=== PATIENT | male | born 1945 | race Caucasian/White ===

== ENCOUNTER → 2017-08-28 | Outpatient (CLI) | payer OTHER | END | disposition home or self-care (01) | LOC: PETCFH 13:11 | PROVIDERS: ATTEND Internal Medicine Pulmonary Disease | DX: R91.1 Solitary pulmonary nodule (principal) | CPT/HCPCS: 78815; A9552 ==

== ENCOUNTER 2017-12-09 21:15 | Inpatient (IN) | payer OTHER ==
[~2017-12-09] VITALS: Ht 172.7 cm; Wt 83.5 kg
[2017-12-09] MEDS ORDERED: ALBUTEROL/IPRATROPIUM 2.5MG/0.5MG, 3 ML ONE (21:38)
[2017-12-09 21:47] LABS: BASOPHILS # (AUTO) 0.05 x10^3/uL (0-0.1); BASOPHILS % (AUTO) 1 % (0-1); EOSINOPHILS # (AUTO) 0.19 x10^3/uL (0-0.4); EOSINOPHILS % (AUTO) 2 % (1-7); LYMPHOCYTES # (AUTO) 0.97 x10^3/uL (1-3.4); LYMPHOCYTES % (AUTO) 11 % (22-44); MD NO; MEAN CORPUSCULAR HEMOGLOBIN 29.8 pg (27.5-34.5); MEAN CORPUSCULAR HGB CONC 33.3 g/dL (33.2-36.2); MEAN CORPUSCULAR VOLUME 89.4 fL (81-97); MEAN PLATELET VOLUME 5.9 fL (7.4-10.4); MONOCYTES # (AUTO) 0.74 x10^3/uL (0.2-0.8); MONOCYTES % (AUTO) 9 % (2-9); NEUTROPHILS # (AUTO) 6.63 x10^3/uL (1.8-6.8); NEUTROPHILS % (AUTO) 77 % (42-75); PLATELET COUNT 560 x10^3/uL (130-400); RED BLOOD COUNT 3.79 x10^6/uL (4.38-5.82); RED CELL DISTRIBUTION WIDTH 16.4 % (9.4-14.8)
[2017-12-09 21:56] LABS: INTERNATIONAL NORMALIZED RATIO 0.95 (0.93-1.1); PROTHROMBIN TIME 9.9 Seconds (9.6-11.5)
[2017-12-09 21:59] LABS: ALANINE AMINOTRANSFERASE 22 U/L (12-78); ALBUMIN 2.8 g/dL (3.4-5.0); ANION GAP 9 mmol/L (5-15); CHLORIDE 81 mmol/L (98-107); CREATININE 0.78 mg/dL (0.7-1.3)
[2017-12-09] MEDS ORDERED: ALBUTEROL/IPRATROPIUM 2.5MG/0.5MG, 3 ML NPPB ONE (22:00)
[2017-12-09 22:03] LABS: ALKALINE PHOSPHATASE 134 U/L (45-117); BILIRUBIN,TOTAL 0.6 mg/dL (0.2-1.0); TOTAL PROTEIN 6.6 g/dL (6.4-8.2)
[2017-12-09] MEDS ORDERED: AMLO10TA2 PO (22:25)
[2017-12-09] MEDS ORDERED: FERR140T2 PO (22:25)
[2017-12-09] MEDS ORDERED: TAMS0.4C2 PO (22:25)
[2017-12-09] MEDS ORDERED: BUDE0.5A INH (22:25)
[2017-12-09] MEDS ORDERED: METO25TA35 PO (22:25)
[2017-12-09] MEDS ORDERED: LOSA1TAB25 PO (22:25)
[2017-12-09] MEDS ORDERED: ALBU1.25 NEB (22:25)
[2017-12-09] MEDS ORDERED: TIOT18CA INH (22:25)
[2017-12-09] MEDS ORDERED: SODIUM CHLORIDE 0.9% 1,000 ML IV SCH (23:01)
[2017-12-09] MEDS ORDERED: BUDESONIDE 0.5 MG/2 ML INHA INH SCH (23:30)
[2017-12-09] MEDS ORDERED: hydrALAzine 20 MG/ML, 1ML IVPush PRN (23:30)
[2017-12-09] MEDS ORDERED: ONDANSETRON 2MG/ML, 2ML IVPush PRN (23:30)
[2017-12-09 23:33] LABS: MICROSCOPIC AUTO
[2017-12-09 23:37] LABS: CULTURE INDICATED? YES
[2017-12-10] MEDS: ENOXAPARIN 40 MG/0.4 ML SQ SCH ×2 (00:24→23:25)
[2017-12-10] MEDS: LACTULOSE 10 GM/15 ML UDC PO SCH ×3 (00:24→21:00)
[2017-12-10 02:38] VITALS: BP 142/76
[2017-12-10 04:00] VITALS: BP 137/76
[2017-12-10 04:35] LABS: BASOPHILS # (AUTO) 0.08 x10^3/uL (0-0.1); BASOPHILS % (AUTO) 1 % (0-1); EOSINOPHILS # (AUTO) 0.23 x10^3/uL (0-0.4); EOSINOPHILS % (AUTO) 3 % (1-7); LYMPHOCYTES # (AUTO) 0.73 x10^3/uL (1-3.4); LYMPHOCYTES % (AUTO) 10 % (22-44); MD NO; MEAN CORPUSCULAR HEMOGLOBIN 30.5 pg (27.5-34.5); MEAN CORPUSCULAR HGB CONC 33.7 g/dL (33.2-36.2); MEAN CORPUSCULAR VOLUME 90.4 fL (81-97); MONOCYTES # (AUTO) 0.71 x10^3/uL (0.2-0.8); MONOCYTES % (AUTO) 10 % (2-9); NEUTROPHILS # (AUTO) 5.33 x10^3/uL (1.8-6.8); NEUTROPHILS % (AUTO) 75 % (42-75); PLATELET COUNT 464 x10^3/uL (130-400); RED CELL DISTRIBUTION WIDTH 16.4 % (9.4-14.8)
[2017-12-10 04:42] LABS: ALBUMIN 2.4 g/dL (3.4-5.0); ANION GAP 12 mmol/L (5-15); CALCIUM 7.6 mg/dL (8.5-10.1); CHLORIDE 87 mmol/L (98-107)
[2017-12-10 04:53] LABS: ALANINE AMINOTRANSFERASE 19 U/L (12-78); ALKALINE PHOSPHATASE 111 U/L (45-117); BILIRUBIN,TOTAL 0.6 mg/dL (0.2-1.0); CREATININE 0.62 mg/dL (0.7-1.3)
[2017-12-10 04:54] LABS: TOTAL PROTEIN 5.6 g/dL (6.4-8.2)
[2017-12-10] MEDS: IPRATROPIUM 0.5 MG/2.5 ML INHA NPPB SCH ×4 (06:48→19:03)
[2017-12-10 08:58] LABS: ANION GAP 10 mmol/L (5-15); CALCIUM 7.7 mg/dL (8.5-10.1); CHLORIDE 89 mmol/L (98-107); CREATININE 0.64 mg/dL (0.7-1.3)
[2017-12-10] MEDS: METOPROLOL TARTRATE 25 MG TABLET PO SCH (09:30)
[2017-12-10] MEDS: TAMSULOSIN 0.4 MG CAP.ER.24H PO SCH (09:30)
[2017-12-10] MEDS: POLYETHYLENE GLYCOL 17 GM PACKET PO SCH (09:30)
[2017-12-10] MEDS: PANTOPRAZOLE 40 MG IV IVPush SCH (11:17)
[2017-12-10] MEDS ORDERED: PINK LADY ENEMA 490 ML BOTTLE PR ONE (11:30)
[2017-12-10] MEDS ORDERED: SODIUM CHLORIDE 0.9% 1,000 ML IV SCH (11:30)
[2017-12-10] MEDS ORDERED: BISACODYL 10 MG SUPP PR PRN (12:00)
[2017-12-10] MEDS ORDERED: MAGNESIUM SULFATE PMX 2GM/50ML 50 ML IV ONE (12:00)
[2017-12-10] MEDS ORDERED: CEFTRIAXONE PMX 1GM/50ML 50 ML IV SCH (12:00)
[2017-12-10] MEDS ORDERED: LACTULOSE 20 GM/30 ML UDC PO PRN (12:00)
[2017-12-10] MEDS: DOCUSATE 100 MG CAPSULE PO SCH (12:44)
[2017-12-10 14:43] LABS: ANION GAP 8 mmol/L (5-15); CALCIUM 7.7 mg/dL (8.5-10.1); CHLORIDE 91 mmol/L (98-107); CREATININE 0.68 mg/dL (0.7-1.3)
[2017-12-10 15:47] LABS: OSMOLALITY,URINE 258 mOsm/kg (500-850)
[2017-12-10 15:53] LABS: SODIUM,URINE RANDOM 22 mmol/L
[2017-12-10] MEDS: THIAMINE 200 MG, MVI ADULT 10 ML, FOLIC ACID 1 MG in D5%-0.9% NACL 1,000 ML IV SCH (16:56)
[2017-12-10 20:44] LABS: ANION GAP 9 mmol/L (5-15); CALCIUM 8.1 mg/dL (8.5-10.1); CHLORIDE 91 mmol/L (98-107); CREATININE 0.97 mg/dL (0.7-1.3)
[2017-12-10] MEDS: SENNA/DOCUSATE TABLET PO SCH (21:00)
[2017-12-11 04:30] VITALS: BP 125/60
[2017-12-11 04:37] LABS: ALANINE AMINOTRANSFERASE 17 U/L (12-78); ALBUMIN 2.3 g/dL (3.4-5.0); ANION GAP 7 mmol/L (5-15); CALCIUM 7.9 mg/dL (8.5-10.1); CHLORIDE 93 mmol/L (98-107); CREATININE 0.89 mg/dL (0.7-1.3)
[2017-12-11 04:39] LABS: ALKALINE PHOSPHATASE 107 U/L (45-117); BILIRUBIN,TOTAL 0.6 mg/dL (0.2-1.0); TOTAL PROTEIN 5.6 g/dL (6.4-8.2)
[2017-12-11 04:51] LABS: BASOPHILS # (AUTO) 0.09 x10^3/uL (0-0.1); BASOPHILS % (AUTO) 1 % (0-1); EOSINOPHILS # (AUTO) 0.19 x10^3/uL (0-0.4); EOSINOPHILS % (AUTO) 2 % (1-7); LYMPHOCYTES # (AUTO) 0.67 x10^3/uL (1-3.4); LYMPHOCYTES % (AUTO) 7 % (22-44); MD NO; MEAN CORPUSCULAR HEMOGLOBIN 30.3 pg (27.5-34.5); MEAN CORPUSCULAR HGB CONC 33.3 g/dL (33.2-36.2); MEAN CORPUSCULAR VOLUME 91.1 fL (81-97); MEAN PLATELET VOLUME 6.6 fL (7.4-10.4); MONOCYTES # (AUTO) 0.86 x10^3/uL (0.2-0.8); MONOCYTES % (AUTO) 9 % (2-9); NEUTROPHILS # (AUTO) 7.59 x10^3/uL (1.8-6.8); NEUTROPHILS % (AUTO) 81 % (42-75); PLATELET COUNT 461 x10^3/uL (130-400); RED BLOOD COUNT 3.17 x10^6/uL (4.38-5.82); RED CELL DISTRIBUTION WIDTH 16.2 % (9.4-14.8)
[2017-12-11] MEDS: IPRATROPIUM 0.5 MG/2.5 ML INHA NPPB SCH ×4 (07:00→18:43)
[2017-12-11] MEDS ORDERED: SODIUM PHOSPHATE 20 MMOL in SODIUM CHLORIDE 0.9% 500 ML IV ONE (07:30)
[2017-12-11] MEDS: TAMSULOSIN 0.4 MG CAP.ER.24H PO SCH (08:53)
[2017-12-11] MEDS: METOPROLOL TARTRATE 25 MG TABLET PO SCH (08:54)
[2017-12-11] MEDS: LACTULOSE 10 GM/15 ML UDC PO SCH (08:55)
[2017-12-11] MEDS: POLYETHYLENE GLYCOL 17 GM PACKET PO SCH (08:55)
[2017-12-11] MEDS: DOCUSATE 100 MG CAPSULE PO SCH (08:56)
[2017-12-11] MEDS ORDERED: SODIUM CHLORIDE 0.9% 1,000 ML IV SCH (11:30)
[2017-12-11] MEDS: PANTOPRAZOLE 40 MG IV IVPush SCH (12:01)
[2017-12-11 13:21] VITALS: BP 127/73
[2017-12-11] MEDS ORDERED: CEFTRIAXONE 1,000 MG in SODIUM CHLORIDE 0.9% 100 ML IV SCH (13:30)
[2017-12-11] MEDS: CEFTRIAXONE 1,000 MG in SODIUM CHLORIDE 0.9% 50 ML IV SCH (13:39)
[2017-12-11] MEDS: THIAMINE 200 MG, MVI ADULT 10 ML, FOLIC ACID 1 MG in D5%-0.9% NACL 1,000 ML IV SCH (18:14)
[2017-12-11 18:32] VITALS: BP 150/82
[2017-12-11] MEDS: SENNA/DOCUSATE TABLET PO SCH (21:00)
[2017-12-11] MEDS: ENOXAPARIN 40 MG/0.4 ML SQ SCH (21:53)
[2017-12-11] MEDS: BUDESONIDE MC SCH (22:30)
[2017-12-11] MEDS ORDERED: BUDESONIDE 0.5 MG/2 ML INHA INH PRN (22:30)
[2017-12-12 01:01] VITALS: BP 147/64
[2017-12-12] MEDS: ALBUTEROL SULFATE 2.5 MG/3 ML NPPB PRN (04:19)
[2017-12-12] MEDS: BUDESONIDE MC SCH ×3 (06:30→21:56)
[2017-12-12 07:11] VITALS: BP 132/56
[2017-12-12] MEDS ORDERED: POTASSIUM CHLORIDE 20 MEQ TAB.ER.PRT PO ONE (08:00)
[2017-12-12] MEDS ORDERED: FUROSEMIDE 40 MG/4 ML IV ONE (08:00)
[2017-12-12 08:30] VITALS: BP 135/80
[2017-12-12] MEDS: POLYETHYLENE GLYCOL 17 GM PACKET PO SCH (09:00)
[2017-12-12] MEDS ORDERED: IPRATROPIUM 0.5 MG/2.5 ML INHA NPPB SCH (09:00)
[2017-12-12] MEDS: DOCUSATE 100 MG CAPSULE PO SCH (09:00)
[2017-12-12] MEDS: ALBUTEROL/IPRATROPIUM 2.5MG/0.5MG, 3 ML NPPB SCH ×4 (09:15→18:35)
[2017-12-12] MEDS ORDERED: ALBUTEROL/IPRATROPIUM 2.5MG/0.5MG, 3 ML ONE (09:18)
[2017-12-12] MEDS: TAMSULOSIN 0.4 MG CAP.ER.24H PO SCH (09:18)
[2017-12-12] MEDS: METOPROLOL TARTRATE 25 MG TABLET PO SCH (09:19)
[2017-12-12] MEDS: FLUTICASONE/VILANTEROL 100-25MCG/INH INH SCH (10:30)
[2017-12-12] MEDS: PANTOPRAZOLE 40 MG IV IVPush SCH (13:44)
[2017-12-12] MEDS: CEFTRIAXONE 1,000 MG in SODIUM CHLORIDE 0.9% 50 ML IV SCH (13:44)
[2017-12-12 14:00] VITALS: BP 140/80
[2017-12-12] MEDS: THIAMINE 200 MG, MVI ADULT 10 ML, FOLIC ACID 1 MG in D5%-0.9% NACL 1,000 ML IV SCH (18:16)
[2017-12-12 18:53] VITALS: BP 126/68
[2017-12-12] MEDS: ENOXAPARIN 40 MG/0.4 ML SQ SCH (21:53)
[2017-12-12] MEDS: SULFAMETH./TRIMETHOPRIM DS 800MG/160MG TABLET PO SCH (21:53)
[2017-12-13 00:20] VITALS: BP 147/62
[2017-12-13] MEDS: ALBUTEROL SULFATE 2.5 MG/3 ML NPPB PRN (00:45)
[2017-12-13 04:52] LABS: ALBUMIN 2.2 g/dL (3.4-5.0); ANION GAP 8 mmol/L (5-15); CHLORIDE 100 mmol/L (98-107)
[2017-12-13 04:58] LABS: % IRON SATURATION 6 % (20-55); ALANINE AMINOTRANSFERASE 16 U/L (12-78); ALKALINE PHOSPHATASE 84 U/L (45-117); BILIRUBIN,TOTAL 0.2 mg/dL (0.2-1.0); CREATININE 0.84 mg/dL (0.7-1.3); IRON LEVEL 17 mcg/dL (65-175); TOTAL IRON BINDING CAPACITY 291 mcg/dL (250-450); TOTAL PROTEIN 5.3 g/dL (6.4-8.2)
[2017-12-13 05:27] LABS: BASOPHILS # (AUTO) 0.09 x10^3/uL (0-0.1); BASOPHILS % (AUTO) 1 % (0-1); EOSINOPHILS # (AUTO) 0.23 x10^3/uL (0-0.4); EOSINOPHILS % (AUTO) 3 % (1-7); LYMPHOCYTES # (AUTO) 0.73 x10^3/uL (1-3.4); LYMPHOCYTES % (AUTO) 10 % (22-44); MD NO; MEAN CORPUSCULAR HEMOGLOBIN 31.9 pg (27.5-34.5); MEAN CORPUSCULAR HGB CONC 34.2 g/dL (33.2-36.2); MEAN CORPUSCULAR VOLUME 93.2 fL (81-97); MEAN PLATELET VOLUME 6.4 fL (7.4-10.4); MONOCYTES % (AUTO) 11 % (2-9); NEUTROPHILS # (AUTO) 5.49 x10^3/uL (1.8-6.8); NEUTROPHILS % (AUTO) 75 % (42-75); PLATELET COUNT 420 x10^3/uL (130-400); RED BLOOD COUNT 2.71 x10^6/uL (4.38-5.82); RED CELL DISTRIBUTION WIDTH 16.8 % (9.4-14.8)
[2017-12-13] MEDS: ALBUTEROL/IPRATROPIUM 2.5MG/0.5MG, 3 ML NPPB SCH ×4 (05:50→19:24)
[2017-12-13] MEDS: BUDESONIDE MC SCH (06:30)
[2017-12-13 07:19] VITALS: BP 153/72
[2017-12-13] MEDS ORDERED: D5 IV PRN (09:00)
[2017-12-13] MEDS: METOPROLOL TARTRATE 25 MG TABLET PO SCH ×2 (09:00→20:00)
[2017-12-13] MEDS ORDERED: MVI ADULT IV PRN (09:00)
[2017-12-13] MEDS: DOCUSATE 100 MG CAPSULE PO SCH (09:00)
[2017-12-13] MEDS ORDERED: NACL IV PRN (09:00)
[2017-12-13] MEDS: POLYETHYLENE GLYCOL 17 GM PACKET PO SCH (09:00)
[2017-12-13] MEDS ORDERED: THIAMINE IV PRN (09:00)
[2017-12-13] MEDS ORDERED: FOLIC ACID IV PRN (09:00)
[2017-12-13] MEDS ORDERED: BUDESONIDE 0.5 MG/2 ML INHA INH PRN (09:30)
[2017-12-13] MEDS ORDERED: MAGNESIUM SULFATE IN WATER 50 ML IV ONE (10:00)
[2017-12-13] MEDS ORDERED: POTASSIUM PHOSPHATE 22 MEQ in SODIUM CHLORIDE 0.9% 250 ML IV ONE (10:00)
[2017-12-13] MEDS: FLUTICASONE/VILANTEROL 100-25MCG/INH INH SCH (10:35)
[2017-12-13] MEDS: TAMSULOSIN 0.4 MG CAP.ER.24H PO SCH (10:38)
[2017-12-13] MEDS: SULFAMETH./TRIMETHOPRIM DS 800MG/160MG TABLET PO SCH ×2 (10:38→20:00)
[2017-12-13] MEDS: methylPREDNISolone SOD SUCC 125 MG/2 ML IVPush SCH ×2 (10:40→17:54)
[2017-12-13] MEDS: AZITHROMYCIN 500 MG TABLET PO SCH (10:40)
[2017-12-13] MEDS: PANTOPRAZOLE 40 MG IV IVPush SCH (12:42)
[2017-12-13 13:58] VITALS: BP 160/85
[2017-12-13 20:00] VITALS: BP 144/77
[2017-12-13] MEDS: BUDESONIDE 0.5 MG/2 ML INHA INH SCH (21:00)
[2017-12-13] MEDS: ENOXAPARIN 40 MG/0.4 ML SQ SCH (22:07)
[2017-12-14 01:30] VITALS: BP 147/81
[2017-12-14] MEDS: methylPREDNISolone SOD SUCC 125 MG/2 ML IVPush SCH ×3 (01:31→18:53)
[2017-12-14 05:51] LABS: ALBUMIN 2.3 g/dL (3.4-5.0); ANION GAP 6 mmol/L (5-15); CALCIUM 8.5 mg/dL (8.5-10.1); CHLORIDE 101 mmol/L (98-107)
[2017-12-14 05:56] LABS: ALANINE AMINOTRANSFERASE 18 U/L (12-78); ALKALINE PHOSPHATASE 83 U/L (45-117); BILIRUBIN,TOTAL 0.6 mg/dL (0.2-1.0); TOTAL PROTEIN 5.8 g/dL (6.4-8.2)
[2017-12-14 06:03] LABS: MEAN CORPUSCULAR HEMOGLOBIN 31.4 pg (27.5-34.5); MEAN CORPUSCULAR HGB CONC 33.8 g/dL (33.2-36.2); MEAN CORPUSCULAR VOLUME 92.8 fL (81-97); MEAN PLATELET VOLUME 6.2 fL (7.4-10.4); PLATELET COUNT 433 x10^3/uL (130-400); RED BLOOD COUNT 2.78 x10^6/uL (4.38-5.82); RED CELL DISTRIBUTION WIDTH 16.6 % (9.4-14.8)
[2017-12-14 06:35] LABS: BASOPHILS % (AUTO) 0 % (0-1); EOSINOPHILS % (AUTO) 0 % (1-7); LYMPHOCYTES % (AUTO) 2 % (22-44); MD SCAN; MONOCYTES # (AUTO) 0.08 x10^3/uL (0.2-0.8); MONOCYTES % (AUTO) 2 % (2-9); NEUTROPHILS # (AUTO) 4.43 x10^3/uL (1.8-6.8); NEUTROPHILS % (AUTO) 96 % (42-75)
[2017-12-14] MEDS: ALBUTEROL/IPRATROPIUM 2.5MG/0.5MG, 3 ML NPPB SCH ×4 (07:15→20:25)
[2017-12-14 07:31] VITALS: BP 164/87
[2017-12-14] MEDS: BUDESONIDE 0.5 MG/2 ML INHA INH SCH ×3 (09:00→20:25)
[2017-12-14] MEDS: POLYETHYLENE GLYCOL 17 GM PACKET PO SCH (09:00)
[2017-12-14] MEDS: FLUTICASONE/VILANTEROL 100-25MCG/INH INH SCH (09:12)
[2017-12-14] MEDS: TAMSULOSIN 0.4 MG CAP.ER.24H PO SCH (09:13)
[2017-12-14] MEDS: SULFAMETH./TRIMETHOPRIM DS 800MG/160MG TABLET PO SCH ×2 (09:13→21:16)
[2017-12-14] MEDS: AZITHROMYCIN 500 MG TABLET PO SCH (09:13)
[2017-12-14] MEDS: DOCUSATE 100 MG CAPSULE PO SCH (09:13)
[2017-12-14] MEDS: METOPROLOL TARTRATE 25 MG TABLET PO SCH ×2 (09:13→21:17)
[2017-12-14 13:00] VITALS: BP 125/75
[2017-12-14] MEDS: PANTOPRAZOLE 40 MG IV IVPush SCH (14:02)
[2017-12-14] MEDS ORDERED: FUROSEMIDE 40 MG/4 ML IV ONE (16:00)
[2017-12-14 19:45] VITALS: BP 151/70
[2017-12-14] MEDS: PANTOPROZOLE 40MG TABLET PO SCH (21:17)
[2017-12-14] MEDS: ACETAMINOPHEN 325 MG TABLET PO PRN (21:27)
[2017-12-14] MEDS: ENOXAPARIN 40 MG/0.4 ML SQ SCH (22:28)
[2017-12-15 01:54] VITALS: BP 151/74
[2017-12-15] MEDS: methylPREDNISolone SOD SUCC 125 MG/2 ML IVPush SCH ×3 (03:34→20:37)
[2017-12-15 06:55] VITALS: BP 114/57
[2017-12-15] MEDS: ALBUTEROL/IPRATROPIUM 2.5MG/0.5MG, 3 ML NPPB SCH ×4 (07:20→20:55)
[2017-12-15] MEDS ORDERED: PHARMACY INSTRUCTION MC SCH (08:00)
[2017-12-15] MEDS ORDERED: GENTAMICIN 350 MG in SODIUM CHLORIDE 0.9% 100 ML IV SCH (08:30)
[2017-12-15] MEDS ORDERED: PHARMACOKINETIC CONSULTATION MC ONE (08:30)
[2017-12-15] MEDS ORDERED: PHARMACOKINETIC MONITORING MC PRN (08:30)
[2017-12-15] MEDS ORDERED: GENTAMICIN PER PHARMACY MC PRN (08:30)
[2017-12-15] MEDS: POLYETHYLENE GLYCOL 17 GM PACKET PO SCH (09:00)
[2017-12-15] MEDS: TAMSULOSIN 0.4 MG CAP.ER.24H PO SCH (09:22)
[2017-12-15] MEDS: SULFAMETH./TRIMETHOPRIM DS 800MG/160MG TABLET PO SCH ×2 (09:22→20:36)
[2017-12-15] MEDS: DOCUSATE 100 MG CAPSULE PO SCH (09:22)
[2017-12-15] MEDS: AZITHROMYCIN 500 MG TABLET PO SCH (09:22)
[2017-12-15] MEDS: FLUTICASONE/VILANTEROL 100-25MCG/INH INH SCH (09:23)
[2017-12-15] MEDS: METOPROLOL TARTRATE 25 MG TABLET PO SCH ×2 (09:23→18:02)
[2017-12-15 11:39] VITALS: BP 138/61
[2017-12-15 12:19] VITALS: BP 126/71
[2017-12-15] MEDS: PANTOPROZOLE 40MG TABLET PO SCH (20:36)
[2017-12-15] MEDS: BUDESONIDE 0.5 MG/2 ML INHA INH SCH (21:00)
[2017-12-15] MEDS: ACETAMINOPHEN 325 MG TABLET PO PRN (22:31)
[2017-12-15 23:14] VITALS: BP 128/69
[2017-12-16] MEDS: ENOXAPARIN 40 MG/0.4 ML SQ SCH (00:05)
[2017-12-16 02:06] VITALS: BP 132/73
[2017-12-16] MEDS: methylPREDNISolone SOD SUCC 125 MG/2 ML IVPush SCH ×3 (04:31→21:59)
[2017-12-16] MEDS: METOPROLOL TARTRATE 25 MG TABLET PO SCH ×2 (05:48→15:39)
[2017-12-16] MEDS: ALBUTEROL/IPRATROPIUM 2.5MG/0.5MG, 3 ML NPPB SCH ×4 (06:33→20:25)
[2017-12-16 07:53] VITALS: BP 147/83
[2017-12-16] MEDS: POLYETHYLENE GLYCOL 17 GM PACKET PO SCH (08:15)
[2017-12-16] MEDS: DOCUSATE 100 MG CAPSULE PO SCH (09:00)
[2017-12-16] MEDS: BUDESONIDE 0.5 MG/2 ML INHA INH SCH ×2 (09:00→20:25)
[2017-12-16] MEDS: FLUTICASONE/VILANTEROL 100-25MCG/INH INH SCH (09:07)
[2017-12-16] MEDS: TAMSULOSIN 0.4 MG CAP.ER.24H PO SCH (09:08)
[2017-12-16] MEDS: SULFAMETH./TRIMETHOPRIM DS 800MG/160MG TABLET PO SCH ×2 (09:09→21:59)
[2017-12-16] MEDS: ACETAMINOPHEN 325 MG TABLET PO PRN (09:16)
[2017-12-16 13:09] VITALS: BP 153/81
[2017-12-16] MEDS ORDERED: METOPROLOL TARTRATE 25 MG TABLET ONE (15:15)
[2017-12-16] MEDS ORDERED: METOPROLOL 1 MG/ML, 5ML IVPush ONE (15:30)
[2017-12-16] MEDS: CHLORDIAZEPOXIDE 10 MG CAPSULE PO SCH (15:48)
[2017-12-16] MEDS ORDERED: METOPROLOL TARTRATE 25 MG TABLET PO SCH (18:00)
[2017-12-16 20:41] VITALS: BP 166/77
[2017-12-16] MEDS: LORazepam 2 MG/ML, 1ML IVPush PRN (21:59)
[2017-12-16] MEDS: PANTOPROZOLE 40MG TABLET PO SCH (22:00)
[2017-12-17] MEDS ORDERED: GENTAMICIN 350 MG in SODIUM CHLORIDE 0.9% 100 ML IV SCH
[2017-12-17] MEDS: ENOXAPARIN 40 MG/0.4 ML SQ SCH ×2 (00:23→23:32)
[2017-12-17] MEDS: CHLORDIAZEPOXIDE 10 MG CAPSULE PO SCH ×4 (00:25→23:31)
[2017-12-17 01:58] LABS: BASOPHILS % (AUTO) 0 % (0-1); EOSINOPHILS % (AUTO) 0 % (1-7); LYMPHOCYTES # (AUTO) 0.16 x10^3/uL (1-3.4); LYMPHOCYTES % (AUTO) 2 % (22-44); MD NO; MEAN CORPUSCULAR HEMOGLOBIN 29.7 pg (27.5-34.5); MEAN CORPUSCULAR HGB CONC 32.7 g/dL (33.2-36.2); MEAN PLATELET VOLUME 6.4 fL (7.4-10.4); MONOCYTES # (AUTO) 0.39 x10^3/uL (0.2-0.8); MONOCYTES % (AUTO) 4 % (2-9); NEUTROPHILS # (AUTO) 8.68 x10^3/uL (1.8-6.8); NEUTROPHILS % (AUTO) 94 % (42-75); PLATELET COUNT 467 x10^3/uL (130-400); RED CELL DISTRIBUTION WIDTH 16.8 % (9.4-14.8)
[2017-12-17 02:10] LABS: ALANINE AMINOTRANSFERASE 28 U/L (12-78); ALBUMIN 2.7 g/dL (3.4-5.0); ANION GAP 6 mmol/L (5-15); CALCIUM 8.5 mg/dL (8.5-10.1); CHLORIDE 107 mmol/L (98-107); CREATININE 1.45 mg/dL (0.7-1.3)
[2017-12-17 02:12] LABS: ALKALINE PHOSPHATASE 59 U/L (45-117); BILIRUBIN,TOTAL 0.2 mg/dL (0.2-1.0); TOTAL PROTEIN 5.8 g/dL (6.4-8.2)
[2017-12-17 03:17] VITALS: BP 132/75
[2017-12-17] MEDS: METOPROLOL TARTRATE 25 MG TABLET PO SCH ×2 (06:34→16:32)
[2017-12-17] MEDS: methylPREDNISolone SOD SUCC 125 MG/2 ML IVPush SCH ×3 (06:34→21:25)
[2017-12-17] MEDS: ALBUTEROL/IPRATROPIUM 2.5MG/0.5MG, 3 ML NPPB SCH ×4 (07:00→19:22)
[2017-12-17 07:36] VITALS: BP 140/84
[2017-12-17] MEDS ORDERED: PHARMACY INSTRUCTION MC SCH (08:30)
[2017-12-17] MEDS ORDERED: FUROSEMIDE 40 MG/4 ML IV ONE (08:30)
[2017-12-17] MEDS: DOCUSATE 100 MG CAPSULE PO SCH (08:42)
[2017-12-17] MEDS: POLYETHYLENE GLYCOL 17 GM PACKET PO SCH (08:42)
[2017-12-17] MEDS: FLUTICASONE/VILANTEROL 100-25MCG/INH INH SCH (08:56)
[2017-12-17] MEDS: SULFAMETH./TRIMETHOPRIM DS 800MG/160MG TABLET PO SCH ×2 (08:58→21:24)
[2017-12-17] MEDS: TAMSULOSIN 0.4 MG CAP.ER.24H PO SCH (08:58)
[2017-12-17] MEDS: BUDESONIDE 0.5 MG/2 ML INHA INH SCH ×2 (09:00→19:22)
[2017-12-17] MEDS: PIPERACILLIN/TAZO/PMX 4.5GM 100 ML IV SCH ×3 (10:25→22:33)
[2017-12-17 12:49] VITALS: BP 127/74
[2017-12-17 16:30] VITALS: BP 121/71
[2017-12-17 21:10] VITALS: BP 135/68
[2017-12-17] MEDS: PANTOPROZOLE 40MG TABLET PO SCH (21:25)
[2017-12-17] MEDS: LORazepam 2 MG/ML, 1ML IVPush PRN (23:32)
[2017-12-18 00:49] VITALS: BP 156/63
[2017-12-18] MEDS: PIPERACILLIN/TAZO/PMX 4.5GM 100 ML IV SCH ×2 (04:34→09:50)
[2017-12-18 05:15] LABS: MEAN CORPUSCULAR HEMOGLOBIN 30.2 pg (27.5-34.5); MEAN CORPUSCULAR VOLUME 91.4 fL (81-97); MEAN PLATELET VOLUME 6.7 fL (7.4-10.4); PLATELET COUNT 452 x10^3/uL (130-400); RED CELL DISTRIBUTION WIDTH 16.4 % (9.4-14.8)
[2017-12-18 05:28] LABS: ALBUMIN 2.5 g/dL (3.4-5.0); ANION GAP 7 mmol/L (5-15); CALCIUM 8.3 mg/dL (8.5-10.1); CHLORIDE 105 mmol/L (98-107)
[2017-12-18 05:32] LABS: ALANINE AMINOTRANSFERASE 29 U/L (12-78); ALKALINE PHOSPHATASE 46 U/L (45-117); BILIRUBIN,TOTAL 0.4 mg/dL (0.2-1.0); CREATININE 2.22 mg/dL (0.7-1.3); TOTAL PROTEIN 5.6 g/dL (6.4-8.2)
[2017-12-18 05:57] LABS: BASOPHILS # (AUTO) 0.01 x10^3/uL (0-0.1); BASOPHILS % (AUTO) 0 % (0-1); EOSINOPHILS % (AUTO) 0 % (1-7); LYMPHOCYTES # (AUTO) 0.15 x10^3/uL (1-3.4); LYMPHOCYTES % (AUTO) 2 % (22-44); MD SCAN; MONOCYTES # (AUTO) 0.39 x10^3/uL (0.2-0.8); MONOCYTES % (AUTO) 4 % (2-9); NEUTROPHILS # (AUTO) 9.47 x10^3/uL (1.8-6.8); NEUTROPHILS % (AUTO) 95 % (42-75)
[2017-12-18] MEDS: methylPREDNISolone SOD SUCC 125 MG/2 ML IVPush SCH ×3 (06:15→20:34)
[2017-12-18] MEDS: LORazepam 2 MG/ML, 1ML IVPush PRN ×3 (06:15→20:34)
[2017-12-18] MEDS: METOPROLOL TARTRATE 25 MG TABLET PO SCH ×2 (06:28→20:34)
[2017-12-18 07:02] VITALS: BP 150/64
[2017-12-18] MEDS: ALBUTEROL/IPRATROPIUM 2.5MG/0.5MG, 3 ML NPPB SCH ×4 (07:26→20:00)
[2017-12-18] MEDS: TAMSULOSIN 0.4 MG CAP.ER.24H PO SCH (07:29)
[2017-12-18] MEDS: SULFAMETH./TRIMETHOPRIM DS 800MG/160MG TABLET PO SCH ×2 (07:29→20:34)
[2017-12-18] MEDS: DOCUSATE 100 MG CAPSULE PO SCH (07:30)
[2017-12-18] MEDS: CHLORDIAZEPOXIDE 10 MG CAPSULE PO SCH ×3 (07:30→23:19)
[2017-12-18] MEDS: POLYETHYLENE GLYCOL 17 GM PACKET PO SCH (07:30)
[2017-12-18] MEDS: FLUTICASONE/VILANTEROL 100-25MCG/INH INH SCH (07:30)
[2017-12-18] MEDS: BUDESONIDE 0.5 MG/2 ML INHA INH SCH ×2 (10:05→21:00)
[2017-12-18 13:45] VITALS: BP 158/75
[2017-12-18] MEDS: SODIUM CHLORIDE 0.9% 1,000 ML IV SCH (14:46)
[2017-12-18 17:58] VITALS: BP 169/82
[2017-12-18] MEDS: PIPERACILLIN/TAZO/PMX 3.375GM 50 ML IV SCH ×2 (18:05→20:43)
[2017-12-18 19:05] VITALS: BP 125/69
[2017-12-18] MEDS: ENOXAPARIN 30 MG/0.3 ML SQ SCH (20:33)
[2017-12-18] MEDS: PANTOPROZOLE 40MG TABLET PO SCH (20:34)
[2017-12-19] MEDS: SODIUM CHLORIDE 0.9% 1,000 ML IV SCH ×3 (00:16→23:13)
[2017-12-19 03:12] VITALS: BP 116/66
[2017-12-19] MEDS: PIPERACILLIN/TAZO/PMX 3.375GM 50 ML IV SCH ×4 (03:59→20:45)
[2017-12-19 05:17] LABS: CHLORIDE 111 mmol/L (98-107)
[2017-12-19] MEDS: methylPREDNISolone SOD SUCC 125 MG/2 ML IVPush SCH ×3 (05:24→20:44)
[2017-12-19] MEDS: METOPROLOL TARTRATE 25 MG TABLET PO SCH ×2 (05:24→18:00)
[2017-12-19 05:31] LABS: ALANINE AMINOTRANSFERASE 30 U/L (12-78); ALBUMIN 2.5 g/dL (3.4-5.0); ALKALINE PHOSPHATASE 39 U/L (45-117); ANION GAP 6 mmol/L (5-15); BILIRUBIN,TOTAL 0.3 mg/dL (0.2-1.0); CALCIUM 8.4 mg/dL (8.5-10.1); CREATININE 1.95 mg/dL (0.7-1.3); TOTAL PROTEIN 5.5 g/dL (6.4-8.2)
[2017-12-19 05:39] LABS: MEAN CORPUSCULAR HEMOGLOBIN 30.6 pg (27.5-34.5); MEAN PLATELET VOLUME 6.8 fL (7.4-10.4); PLATELET COUNT 471 x10^3/uL (130-400); RED BLOOD COUNT 2.96 x10^6/uL (4.38-5.82); RED CELL DISTRIBUTION WIDTH 16.8 % (9.4-14.8)
[2017-12-19] MEDS: LORazepam 2 MG/ML, 1ML IVPush PRN ×4 (05:43→20:28)
[2017-12-19 05:51] LABS: BASOPHILS # (AUTO) 0.01 x10^3/uL (0-0.1); BASOPHILS % (AUTO) 0 % (0-1); EOSINOPHILS % (AUTO) 0 % (1-7); LYMPHOCYTES # (AUTO) 0.15 x10^3/uL (1-3.4); LYMPHOCYTES % (AUTO) 2 % (22-44); MD SCAN; MONOCYTES % (AUTO) 4 % (2-9); NEUTROPHILS # (AUTO) 7.85 x10^3/uL (1.8-6.8); NEUTROPHILS % (AUTO) 95 % (42-75)
[2017-12-19] MEDS: ALBUTEROL/IPRATROPIUM 2.5MG/0.5MG, 3 ML NPPB SCH ×6 (05:57→19:54)
[2017-12-19 08:42] VITALS: BP 137/67
[2017-12-19] MEDS: BUDESONIDE 0.5 MG/2 ML INHA INH SCH ×3 (08:45→21:00)
[2017-12-19] MEDS: FLUTICASONE/VILANTEROL 100-25MCG/INH INH SCH (09:00)
[2017-12-19] MEDS: POLYETHYLENE GLYCOL 17 GM PACKET PO SCH (09:00)
[2017-12-19] MEDS: CHLORDIAZEPOXIDE 10 MG CAPSULE PO SCH ×3 (09:01→23:30)
[2017-12-19] MEDS: TAMSULOSIN 0.4 MG CAP.ER.24H PO SCH (09:01)
[2017-12-19] MEDS: DOCUSATE 100 MG CAPSULE PO SCH (09:01)
[2017-12-19] MEDS: SULFAMETH./TRIMETHOPRIM DS 800MG/160MG TABLET PO SCH ×2 (09:01→20:14)
[2017-12-19 13:55] VITALS: BP 132/78
[2017-12-19 18:52] VITALS: BP 157/63
[2017-12-19] MEDS: PANTOPROZOLE 40MG TABLET PO SCH (20:14)
[2017-12-19] MEDS: ENOXAPARIN 30 MG/0.3 ML SQ SCH (20:44)
[2017-12-19] MEDS: METOPROLOL 1 MG/ML, 5ML IVPush PRN (20:45)
[2017-12-19] MEDS: HALOPERIDOL 5 MG/ML IM PRN (23:12)
[2017-12-20 02:50] VITALS: BP 124/67
[2017-12-20] MEDS: PIPERACILLIN/TAZO/PMX 3.375GM 50 ML IV SCH ×4 (03:17→21:01)
[2017-12-20] MEDS: HALOPERIDOL 5 MG/ML IM PRN (04:20)
[2017-12-20] MEDS: METOPROLOL TARTRATE 25 MG TABLET PO SCH ×2 (05:12→17:19)
[2017-12-20] MEDS: methylPREDNISolone SOD SUCC 125 MG/2 ML IVPush SCH ×3 (05:24→21:04)
[2017-12-20] MEDS: BUDESONIDE 0.5 MG/2 ML INHA INH SCH (07:20)
[2017-12-20] MEDS: ALBUTEROL/IPRATROPIUM 2.5MG/0.5MG, 3 ML NPPB SCH (07:20)
[2017-12-20 07:40] VITALS: BP 129/85
[2017-12-20] MEDS ORDERED: ROCURONIUM 10 MG/ML,10ML ONE (08:00)
[2017-12-20] MEDS ORDERED: PROPOFOL 10 MG/ML, 100ML IV ONE (08:00)
[2017-12-20] MEDS ORDERED: MIDAZOLAM 1 MG/ML, 5ML ONE (08:00)
[2017-12-20 08:14] LABS: O2 FLOW 8 L/min
[2017-12-20 08:56] LABS: MEAN CORPUSCULAR HGB CONC 32.7 g/dL (33.2-36.2); MEAN CORPUSCULAR VOLUME 91.8 fL (81-97); MEAN PLATELET VOLUME 6.6 fL (7.4-10.4); PLATELET COUNT 511 x10^3/uL (130-400); RED BLOOD COUNT 3.13 x10^6/uL (4.38-5.82); RED CELL DISTRIBUTION WIDTH 17.1 % (9.4-14.8)
[2017-12-20 09:04] LABS: ALANINE AMINOTRANSFERASE 35 U/L (12-78); ALBUMIN 2.6 g/dL (3.4-5.0); ANION GAP 3 mmol/L (5-15); CALCIUM 8.4 mg/dL (8.5-10.1); CHLORIDE 118 mmol/L (98-107); CREATININE 1.76 mg/dL (0.7-1.3)
[2017-12-20 09:06] LABS: ALKALINE PHOSPHATASE 37 U/L (45-117); BILIRUBIN,TOTAL 0.2 mg/dL (0.2-1.0); TOTAL PROTEIN 5.8 g/dL (6.4-8.2)
[2017-12-20 10:23] LABS: BASOPHILS % (AUTO) 0 % (0-1); EOSINOPHILS % (AUTO) 0 % (1-7); LYMPHOCYTES # (AUTO) 0.18 x10^3/uL (1-3.4); LYMPHOCYTES % (AUTO) 2 % (22-44); MD SCAN; MONOCYTES # (AUTO) 0.25 x10^3/uL (0.2-0.8); MONOCYTES % (AUTO) 2 % (2-9); NEUTROPHILS # (AUTO) 11.12 x10^3/uL (1.8-6.8); NEUTROPHILS % (AUTO) 96 % (42-75)
[2017-12-20] MEDS ORDERED: LACTULOSE 20 GM/30 ML UDC NG PRN (10:30)
[2017-12-20] MEDS ORDERED: FAMOTIDINE 20 MG/2 ML IV SCH (10:30)
[2017-12-20] MEDS ORDERED: SENNOSIDES 8.8 MG/5 ML ORAL SOL NG PRN (10:30)
[2017-12-20] MEDS ORDERED: BISACODYL 10 MG SUPP PR PRN (10:30)
[2017-12-20] MEDS ORDERED: LIDOCAINE-MPF 1%, 2ML ENDO PRN (10:30)
[2017-12-20] MEDS ORDERED: SENNA/DOCUSATE TABLET NG PRN (10:30)
[2017-12-20] MEDS ORDERED: PHARMACY MAY ADJ FOR RENAL FX MC SCH (10:30)
[2017-12-20 10:53] LABS: FIO2 100 %
[2017-12-20] MEDS: ALBUTEROL/IPRATROPIUM 2.5MG/0.5MG, 3 ML INLINE SCH ×4 (11:05→23:11)
[2017-12-20] MEDS ORDERED: MIDAZOLAM 1 MG/ML, 5ML IVPush PRN (13:00)
[2017-12-20] MEDS: SODIUM CHLORIDE 0.9% 1,000 ML IV SCH (13:27)
[2017-12-20] MEDS: PROPOFOL 100 ML IV PRN ×3 (13:28→22:34)
[2017-12-20] MEDS ORDERED: MIDAZOLAM 1 MG/ML, 5ML IV ONE (13:30)
[2017-12-20] MEDS ORDERED: ROCURONIUM 10 MG/ML,10ML IVPush ONE (13:30)
[2017-12-20] MEDS: FLUTICASONE/VILANTEROL 100-25MCG/INH INH SCH (17:09)
[2017-12-20] MEDS: DOCUSATE 100 MG CAPSULE PO SCH (17:18)
[2017-12-20] MEDS: POLYETHYLENE GLYCOL 17 GM PACKET PO SCH (17:20)
[2017-12-20] MEDS: HEPARIN 5,000 UNITS/ML, 1ML SQ SCH (17:20)
[2017-12-20] MEDS: TAMSULOSIN 0.4 MG CAP.ER.24H PO SCH (17:20)
[2017-12-20] MEDS: PANTOPRAZOLE 40 MG IV IVPush SCH (17:36)
[2017-12-20] MEDS ORDERED: SODIUM CHLORIDE 0.45% 1,000 ML IV SCH ×2 (18:30)
[2017-12-20] MEDS: MVI ADULT 10 ML, THIAMINE 200 MG, FOLIC ACID 1 MG in SODIUM CHLORIDE 0.45% 1,000 ML IV SCH (20:50)
[2017-12-20] MEDS ORDERED: ENOXAPARIN 40 MG/0.4 ML SQ SCH (21:00)
[2017-12-20] MEDS ORDERED: SULFAMETH/TRIMETHOPRIM 40-8MG/ML SUSP. PO SCH (21:00)
[2017-12-21] MEDS ORDERED: MIDAZOLAM 1 MG/ML, 2ML IVPush PRN
[2017-12-21] MEDS: HEPARIN 5,000 UNITS/ML, 1ML SQ SCH ×2 (00:05→08:50)
[2017-12-21] MEDS: PROPOFOL 100 ML IV PRN ×3 (01:49→20:14)
[2017-12-21] MEDS: ALBUTEROL/IPRATROPIUM 2.5MG/0.5MG, 3 ML INLINE SCH ×6 (03:22→23:00)
[2017-12-21] MEDS: PIPERACILLIN/TAZO/PMX 3.375GM 50 ML IV SCH ×4 (03:52→22:17)
[2017-12-21 04:42] LABS: BASOPHILS # (AUTO) 0.03 x10^3/uL (0-0.1); BASOPHILS % (AUTO) 0 % (0-1); EOSINOPHILS % (AUTO) 0 % (1-7); LYMPHOCYTES # (AUTO) 0.21 x10^3/uL (1-3.4); LYMPHOCYTES % (AUTO) 2 % (22-44); MD NO; MEAN CORPUSCULAR HGB CONC 32.7 g/dL (33.2-36.2); MEAN CORPUSCULAR VOLUME 91.9 fL (81-97); MONOCYTES % (AUTO) 5 % (2-9); NEUTROPHILS % (AUTO) 93 % (42-75); PLATELET COUNT 441 x10^3/uL (130-400); RED BLOOD COUNT 2.75 x10^6/uL (4.38-5.82); RED CELL DISTRIBUTION WIDTH 16.7 % (9.4-14.8)
[2017-12-21] MEDS: methylPREDNISolone SOD SUCC 125 MG/2 ML IVPush SCH ×3 (04:46→22:17)
[2017-12-21] MEDS: METOPROLOL TARTRATE 25 MG TABLET PO SCH ×2 (04:46→17:44)
[2017-12-21 04:54] LABS: ALBUMIN 2.2 g/dL (3.4-5.0); ANION GAP 8 mmol/L (5-15); CALCIUM 7.6 mg/dL (8.5-10.1); CHLORIDE 118 mmol/L (98-107)
[2017-12-21 05:23] LABS: ALANINE AMINOTRANSFERASE 26 U/L (12-78); ALKALINE PHOSPHATASE 31 U/L (45-117); BILIRUBIN,TOTAL 0.2 mg/dL (0.2-1.0); CREATININE 1.95 mg/dL (0.7-1.3); TOTAL PROTEIN 4.7 g/dL (6.4-8.2)
[2017-12-21] MEDS ORDERED: DEXTROSE 5% 1,000 ML IV SCH (06:30)
[2017-12-21] MEDS: DOCUSATE 100 MG CAPSULE PO SCH (08:51)
[2017-12-21] MEDS: POLYETHYLENE GLYCOL 17 GM PACKET PO SCH (08:51)
[2017-12-21] MEDS: TAMSULOSIN 0.4 MG CAP.ER.24H PO SCH (08:51)
[2017-12-21] MEDS: ERGOCALCIFEROL 50,000 UNIT CAPSULE PO SCH (08:51)
[2017-12-21] MEDS: FLUTICASONE/VILANTEROL 100-25MCG/INH INH SCH (10:00)
[2017-12-21] MEDS ORDERED: FAMOTIDINE 20 MG/2 ML IV SCH (10:00)
[2017-12-21] MEDS: DIAZEPAM 5 MG/ML, 2ML IV SCH ×3 (11:25→20:04)
[2017-12-21] MEDS ORDERED: HEPARIN 5,000 UNITS/ML, 1ML IV ONE (15:30)
[2017-12-21] MEDS ORDERED: HEPARIN 5,000 UNITS/ML, 1ML IV PRN (15:30)
[2017-12-21] MEDS: PANTOPRAZOLE 40 MG IV IVPush SCH (16:38)
[2017-12-21] MEDS: HEPARIN 25,000 UNITS/500ML PMX 500 ML IV PRN (17:00)
[2017-12-21] MEDS: MVI ADULT 10 ML, THIAMINE 200 MG, FOLIC ACID 1 MG in SODIUM CHLORIDE 0.45% 1,000 ML IV SCH (17:51)
[2017-12-21] MEDS: METOPROLOL 1 MG/ML, 5ML IVPush PRN (20:23)
[2017-12-22] MEDS: DIAZEPAM 5 MG/ML, 2ML IV SCH ×6 (00:28→20:08)
[2017-12-22] MEDS: METOPROLOL TARTRATE 25 MG TABLET PO SCH ×3 (01:14→17:25)
[2017-12-22] MEDS: ALBUTEROL/IPRATROPIUM 2.5MG/0.5MG, 3 ML INLINE SCH ×6 (03:00→22:45)
[2017-12-22] MEDS: PIPERACILLIN/TAZO/PMX 3.375GM 50 ML IV SCH ×2 (03:13→09:17)
[2017-12-22 04:58] LABS: MEAN CORPUSCULAR HEMOGLOBIN 29.7 pg (27.5-34.5); MEAN CORPUSCULAR HGB CONC 32.4 g/dL (33.2-36.2); MEAN CORPUSCULAR VOLUME 91.7 fL (81-97); MEAN PLATELET VOLUME 6.9 fL (7.4-10.4); PLATELET COUNT 443 x10^3/uL (130-400); RED BLOOD COUNT 2.77 x10^6/uL (4.38-5.82); RED CELL DISTRIBUTION WIDTH 16.5 % (9.4-14.8)
[2017-12-22 05:05] LABS: ALBUMIN 2.1 g/dL (3.4-5.0); ANION GAP 9 mmol/L (5-15); CALCIUM 7.7 mg/dL (8.5-10.1); CHLORIDE 113 mmol/L (98-107)
[2017-12-22 05:08] LABS: ALANINE AMINOTRANSFERASE 25 U/L (12-78); ALKALINE PHOSPHATASE 30 U/L (45-117); BILIRUBIN,TOTAL 0.4 mg/dL (0.2-1.0); CREATININE 1.94 mg/dL (0.7-1.3); TOTAL PROTEIN 4.7 g/dL (6.4-8.2)
[2017-12-22] MEDS: METOPROLOL 1 MG/ML, 5ML IVPush PRN ×2 (05:24→17:14)
[2017-12-22] MEDS: methylPREDNISolone SOD SUCC 125 MG/2 ML IVPush SCH (05:24)
[2017-12-22 06:16] LABS: BASOPHILS % (AUTO) 0 % (0-1); EOSINOPHILS % (AUTO) 0 % (1-7); LYMPHOCYTES # (AUTO) 0.31 x10^3/uL (1-3.4); LYMPHOCYTES % (AUTO) 2 % (22-44); MD SCAN; MONOCYTES # (AUTO) 0.48 x10^3/uL (0.2-0.8); MONOCYTES % (AUTO) 3 % (2-9); NEUTROPHILS # (AUTO) 14.85 x10^3/uL (1.8-6.8); NEUTROPHILS % (AUTO) 95 % (42-75)
[2017-12-22] MEDS: PROPOFOL 100 ML IV PRN ×3 (06:39→18:49)
[2017-12-22] MEDS: DOCUSATE 100 MG CAPSULE PO SCH (09:00)
[2017-12-22] MEDS: FLUTICASONE/VILANTEROL 100-25MCG/INH INH SCH (09:00)
[2017-12-22] MEDS: POLYETHYLENE GLYCOL 17 GM PACKET PO SCH (09:00)
[2017-12-22] MEDS: TAMSULOSIN 0.4 MG CAP.ER.24H PO SCH (09:17)
[2017-12-22] MEDS: AMPICILLIN/SULBACTAM 3 GM in SODIUM CHLORIDE 0.9% 100 ML IV SCH ×3 (11:29→22:52)
[2017-12-22] MEDS: MVI ADULT 10 ML, THIAMINE 200 MG, FOLIC ACID 1 MG in SODIUM CHLORIDE 0.45% 1,000 ML IV SCH (17:00)
[2017-12-22] MEDS: PANTOPRAZOLE 40 MG IV IVPush SCH (17:18)
[2017-12-22] MEDS: methylPREDNISolone SOD SUCC 40 MG/ML IVPush SCH (17:23)
[2017-12-22] MEDS: HEPARIN 25,000 UNITS/500ML PMX 500 ML IV PRN (20:11)
[2017-12-23] MEDS: DIAZEPAM 5 MG/ML, 2ML IV SCH ×7 (00:08→23:50)
[2017-12-23] MEDS: PROPOFOL 100 ML IV PRN ×2 (00:09→04:58)
[2017-12-23] MEDS: METOPROLOL 1 MG/ML, 5ML IVPush PRN ×2 (00:13→11:41)
[2017-12-23] MEDS: METOPROLOL TARTRATE 25 MG TABLET PO SCH ×3 (02:01→17:39)
[2017-12-23] MEDS: ALBUTEROL/IPRATROPIUM 2.5MG/0.5MG, 3 ML INLINE SCH ×6 (02:11→22:59)
[2017-12-23] MEDS: AMPICILLIN/SULBACTAM 3 GM in SODIUM CHLORIDE 0.9% 100 ML IV SCH ×4 (04:28→23:46)
[2017-12-23 04:36] LABS: MEAN CORPUSCULAR HEMOGLOBIN 29.9 pg (27.5-34.5); MEAN CORPUSCULAR VOLUME 90.6 fL (81-97); PLATELET COUNT 425 x10^3/uL (130-400); RED BLOOD COUNT 2.74 x10^6/uL (4.38-5.82); RED CELL DISTRIBUTION WIDTH 16.4 % (9.4-14.8)
[2017-12-23 04:59] LABS: ANION GAP 8 mmol/L (5-15); CALCIUM 7.8 mg/dL (8.5-10.1); CHLORIDE 112 mmol/L (98-107)
[2017-12-23 05:00] LABS: CREATININE 1.62 mg/dL (0.7-1.3); TRIGLYCERIDES 144 mg/dL (50-200)
[2017-12-23 05:46] LABS: BASOPHILS # (AUTO) 0.12 x10^3/uL (0-0.1); BASOPHILS % (AUTO) 1 % (0-1); EOSINOPHILS # (AUTO) 0.04 x10^3/uL (0-0.4); EOSINOPHILS % (AUTO) 0 % (1-7); LYMPHOCYTES # (AUTO) 0.45 x10^3/uL (1-3.4); LYMPHOCYTES % (AUTO) 3 % (22-44); MD SCAN; MONOCYTES # (AUTO) 1.07 x10^3/uL (0.2-0.8); MONOCYTES % (AUTO) 6 % (2-9); NEUTROPHILS # (AUTO) 16.76 x10^3/uL (1.8-6.8); NEUTROPHILS % (AUTO) 91 % (42-75)
[2017-12-23] MEDS: methylPREDNISolone SOD SUCC 40 MG/ML IVPush SCH ×2 (05:59→17:40)
[2017-12-23] MEDS ORDERED: SODIUM CHLORIDE 0.45% 1,000 ML IV SCH (07:30)
[2017-12-23] MEDS: POLYETHYLENE GLYCOL 17 GM PACKET PO SCH (08:58)
[2017-12-23] MEDS: DOCUSATE 100 MG CAPSULE PO SCH (08:58)
[2017-12-23] MEDS: TAMSULOSIN 0.4 MG CAP.ER.24H PO SCH (08:58)
[2017-12-23] MEDS: FLUTICASONE/VILANTEROL 100-25MCG/INH INH SCH (08:58)
[2017-12-23] MEDS: HEPARIN 5,000 UNITS/ML, 1ML SQ SCH ×3 (09:13→23:50)
[2017-12-23] MEDS: PANTOPRAZOLE 40 MG IV IVPush SCH (17:40)
[2017-12-24] MEDS: PROPOFOL 100 ML IV PRN ×3 (00:19→17:56)
[2017-12-24] MEDS: ALBUTEROL/IPRATROPIUM 2.5MG/0.5MG, 3 ML INLINE SCH ×6 (02:29→22:55)
[2017-12-24] MEDS: METOPROLOL TARTRATE 25 MG TABLET PO SCH ×3 (02:41→17:13)
[2017-12-24] MEDS: DIAZEPAM 5 MG/ML, 2ML IV SCH ×2 (04:18→07:42)
[2017-12-24 04:36] LABS: MEAN CORPUSCULAR HEMOGLOBIN 30.6 pg (27.5-34.5); MEAN CORPUSCULAR HGB CONC 33.3 g/dL (33.2-36.2); MEAN CORPUSCULAR VOLUME 91.8 fL (81-97); MEAN PLATELET VOLUME 7.2 fL (7.4-10.4); PLATELET COUNT 405 x10^3/uL (130-400); RED CELL DISTRIBUTION WIDTH 16.5 % (9.4-14.8)
[2017-12-24] MEDS: AMPICILLIN/SULBACTAM 3 GM in SODIUM CHLORIDE 0.9% 100 ML IV SCH ×4 (04:47→22:46)
[2017-12-24] MEDS: methylPREDNISolone SOD SUCC 40 MG/ML IVPush SCH (04:51)
[2017-12-24 04:52] LABS: CALCIUM 7.7 mg/dL (8.5-10.1); CHLORIDE 112 mmol/L (98-107)
[2017-12-24 04:56] LABS: ANION GAP 9 mmol/L (5-15); CREATININE 1.37 mg/dL (0.7-1.3)
[2017-12-24 05:04] LABS: BASOPHILS # (AUTO) 0.01 x10^3/uL (0-0.1); BASOPHILS % (AUTO) 0 % (0-1); EOSINOPHILS # (AUTO) 0.03 x10^3/uL (0-0.4); EOSINOPHILS % (AUTO) 0 % (1-7); LYMPHOCYTES # (AUTO) 0.58 x10^3/uL (1-3.4); LYMPHOCYTES % (AUTO) 3 % (22-44); MD SCAN; MONOCYTES # (AUTO) 0.78 x10^3/uL (0.2-0.8); MONOCYTES % (AUTO) 4 % (2-9); NEUTROPHILS # (AUTO) 17.34 x10^3/uL (1.8-6.8); NEUTROPHILS % (AUTO) 93 % (42-75)
[2017-12-24 05:15] VITALS: BP 144/74
[2017-12-24] MEDS: HEPARIN 5,000 UNITS/ML, 1ML SQ SCH (07:42)
[2017-12-24] MEDS: DOCUSATE 100 MG CAPSULE PO SCH (07:43)
[2017-12-24] MEDS: TAMSULOSIN 0.4 MG CAP.ER.24H PO SCH (07:49)
[2017-12-24] MEDS: POLYETHYLENE GLYCOL 17 GM PACKET PO SCH (07:49)
[2017-12-24] MEDS: FLUTICASONE/VILANTEROL 100-25MCG/INH INH SCH (09:00)
[2017-12-24] MEDS: SODIUM CHLORIDE 0.9% 1,000 ML IV SCH (09:18)
[2017-12-24] MEDS: ENOXAPARIN 80 MG/0.8 ML SQ SCH (11:55)
[2017-12-24] MEDS: PANTOPRAZOLE 40 MG IV IVPush SCH (15:53)
[2017-12-25] MEDS: METOPROLOL TARTRATE 25 MG TABLET PO SCH ×3 (00:57→17:46)
[2017-12-25] MEDS: ENOXAPARIN 80 MG/0.8 ML SQ SCH ×2 (00:57→12:08)
[2017-12-25] MEDS: ALBUTEROL/IPRATROPIUM 2.5MG/0.5MG, 3 ML INLINE SCH ×6 (02:52→23:45)
[2017-12-25] MEDS: SODIUM CHLORIDE 0.9% 1,000 ML IV SCH (04:32)
[2017-12-25] MEDS: AMPICILLIN/SULBACTAM 3 GM in SODIUM CHLORIDE 0.9% 100 ML IV SCH ×4 (04:33→23:22)
[2017-12-25] MEDS: PROPOFOL 100 ML IV PRN (04:34)
[2017-12-25 04:37] LABS: MEAN CORPUSCULAR HGB CONC 33.1 g/dL (33.2-36.2); MEAN CORPUSCULAR VOLUME 90.4 fL (81-97); MEAN PLATELET VOLUME 7.4 fL (7.4-10.4); PLATELET COUNT 380 x10^3/uL (130-400); RED BLOOD COUNT 2.73 x10^6/uL (4.38-5.82); RED CELL DISTRIBUTION WIDTH 16.2 % (9.4-14.8)
[2017-12-25 04:51] LABS: CHLORIDE 116 mmol/L (98-107)
[2017-12-25 04:55] LABS: ANION GAP 8 mmol/L (5-15); CALCIUM 7.7 mg/dL (8.5-10.1); CREATININE 1.23 mg/dL (0.7-1.3)
[2017-12-25 05:16] LABS: MD YES
[2017-12-25 05:22] LABS: ANISOCYTOSIS 1+; BAND#(MANUAL) 0.16 x10^3/uL; BANDS%(MANUAL) 1 % (0-7); EOS#(MANUAL) 0.16 x10^3/uL (0.0-0.4); EOS% (MANUAL) 1 % (1-7); HYPOCHROMIA 1+; LYMPH#(MANUAL) 2.25 x10^3/uL (1-3.4); LYMPHS% (MANUAL) 14 % (22-44); MONOS#(MANUAL) 0.48 x10^3/uL (0.3-2.7); MONOS% (MANUAL) 3 % (2-9); SEG#(MANUAL) 13.04 x10^3/uL (1.8-6.8); SEGS% (MANUAL) 81 % (42-75)
[2017-12-25 05:23] LABS: <PLATELET ESTIMATE> ADEQUATE; <PLT MORPHOLOGY> NORMAL PLT MORPH
[2017-12-25] MEDS ORDERED: SODIUM CHLORIDE 0.45% 1,000 ML IV SCH (07:30)
[2017-12-25] MEDS ORDERED: FUROSEMIDE 40 MG/4 ML IV ONE (08:30)
[2017-12-25] MEDS: FLUTICASONE/VILANTEROL 100-25MCG/INH INH SCH (09:00)
[2017-12-25] MEDS: POLYETHYLENE GLYCOL 17 GM PACKET PO SCH (09:00)
[2017-12-25] MEDS: TAMSULOSIN 0.4 MG CAP.ER.24H PO SCH (10:19)
[2017-12-25] MEDS: DOCUSATE 100 MG CAPSULE PO SCH (10:19)
[2017-12-25] MEDS: PANTOPRAZOLE 40 MG IV IVPush SCH (16:40)
[2017-12-25] MEDS: FENTANYL PF 100 MCG/2ML IVPush PRN ×3 (16:46→21:07)
[2017-12-26] MEDS: FENTANYL PF 100 MCG/2ML IVPush PRN ×5 (00:18→19:41)
[2017-12-26] MEDS: ENOXAPARIN 80 MG/0.8 ML SQ SCH ×3 (00:23→23:29)
[2017-12-26] MEDS: METOPROLOL TARTRATE 25 MG TABLET PO SCH ×3 (02:36→18:08)
[2017-12-26] MEDS: ALBUTEROL/IPRATROPIUM 2.5MG/0.5MG, 3 ML INLINE SCH ×6 (03:03→22:43)
[2017-12-26] MEDS: AMPICILLIN/SULBACTAM 3 GM in SODIUM CHLORIDE 0.9% 100 ML IV SCH ×4 (04:49→23:29)
[2017-12-26 04:50] LABS: MEAN CORPUSCULAR HEMOGLOBIN 30.6 pg (27.5-34.5); MEAN CORPUSCULAR HGB CONC 33.4 g/dL (33.2-36.2); MEAN CORPUSCULAR VOLUME 91.6 fL (81-97); MEAN PLATELET VOLUME 7.9 fL (7.4-10.4); PLATELET COUNT 351 x10^3/uL (130-400); RED BLOOD COUNT 2.77 x10^6/uL (4.38-5.82); RED CELL DISTRIBUTION WIDTH 16.4 % (9.4-14.8)
[2017-12-26 05:04] LABS: ANION GAP 7 mmol/L (5-15); CHLORIDE 116 mmol/L (98-107); CREATININE 1.32 mg/dL (0.7-1.3); TRIGLYCERIDES 117 mg/dL (50-200)
[2017-12-26 05:43] LABS: BASOPHILS # (AUTO) 0.09 x10^3/uL (0-0.1); BASOPHILS % (AUTO) 1 % (0-1); EOSINOPHILS # (AUTO) 0.48 x10^3/uL (0-0.4); EOSINOPHILS % (AUTO) 3 % (1-7); LYMPHOCYTES # (AUTO) 0.89 x10^3/uL (1-3.4); LYMPHOCYTES % (AUTO) 6 % (22-44); MD SCAN; MONOCYTES # (AUTO) 0.93 x10^3/uL (0.2-0.8); MONOCYTES % (AUTO) 6 % (2-9); NEUTROPHILS # (AUTO) 13.82 x10^3/uL (1.8-6.8); NEUTROPHILS % (AUTO) 85 % (42-75)
[2017-12-26] MEDS: POLYETHYLENE GLYCOL 17 GM PACKET PO SCH (07:24)
[2017-12-26] MEDS: FLUTICASONE/VILANTEROL 100-25MCG/INH INH SCH (07:31)
[2017-12-26] MEDS: PANTOPRAZOLE 40 MG IV IVPush SCH (09:55)
[2017-12-26] MEDS: TAMSULOSIN 0.4 MG CAP.ER.24H PO SCH (09:55)
[2017-12-26] MEDS: PANTOPRAZOLE GRAN. PKT 40 MG PO SCH (19:41)
[2017-12-27] MEDS: FENTANYL PF 100 MCG/2ML IVPush PRN ×4 (02:26→22:53)
[2017-12-27] MEDS: METOPROLOL TARTRATE 25 MG TABLET PO SCH ×3 (02:27→17:23)
[2017-12-27] MEDS: ALBUTEROL/IPRATROPIUM 2.5MG/0.5MG, 3 ML INLINE SCH ×6 (02:35→22:49)
[2017-12-27 04:39] LABS: MEAN CORPUSCULAR HEMOGLOBIN 29.9 pg (27.5-34.5); MEAN CORPUSCULAR HGB CONC 32.6 g/dL (33.2-36.2); MEAN CORPUSCULAR VOLUME 91.8 fL (81-97); MEAN PLATELET VOLUME 7.8 fL (7.4-10.4); PLATELET COUNT 312 x10^3/uL (130-400); RED BLOOD COUNT 2.61 x10^6/uL (4.38-5.82); RED CELL DISTRIBUTION WIDTH 16.7 % (9.4-14.8)
[2017-12-27 04:44] LABS: ANION GAP 7 mmol/L (5-15); CALCIUM 8.1 mg/dL (8.5-10.1); CHLORIDE 115 mmol/L (98-107)
[2017-12-27 04:45] LABS: CREATININE 1.33 mg/dL (0.7-1.3)
[2017-12-27 04:58] LABS: BASOPHILS # (AUTO) 0.03 x10^3/uL (0-0.1); BASOPHILS % (AUTO) 0 % (0-1); EOSINOPHILS # (AUTO) 0.41 x10^3/uL (0-0.4); EOSINOPHILS % (AUTO) 3 % (1-7); LYMPHOCYTES # (AUTO) 0.85 x10^3/uL (1-3.4); LYMPHOCYTES % (AUTO) 6 % (22-44); MD SCAN; MONOCYTES # (AUTO) 0.93 x10^3/uL (0.2-0.8); MONOCYTES % (AUTO) 7 % (2-9); NEUTROPHILS # (AUTO) 12.17 x10^3/uL (1.8-6.8); NEUTROPHILS % (AUTO) 85 % (42-75)
[2017-12-27] MEDS: AMPICILLIN/SULBACTAM 3 GM in SODIUM CHLORIDE 0.9% 100 ML IV SCH ×4 (05:52→22:53)
[2017-12-27] MEDS: DOCUSATE 50 MG/5 ML, 10ML UDC PO SCH (07:03)
[2017-12-27] MEDS: FLUTICASONE/VILANTEROL 100-25MCG/INH INH SCH (07:03)
[2017-12-27] MEDS: POLYETHYLENE GLYCOL 17 GM PACKET PO SCH (07:04)
[2017-12-27] MEDS: PANTOPRAZOLE GRAN. PKT 40 MG PO SCH ×2 (08:55→20:11)
[2017-12-27] MEDS: TAMSULOSIN 0.4 MG CAP.ER.24H PO SCH (08:56)
[2017-12-27] MEDS ORDERED: FUROSEMIDE 40 MG/4 ML IV ONE (09:00)
[2017-12-27] MEDS: ENOXAPARIN 80 MG/0.8 ML SQ SCH ×2 (11:37→22:54)
[2017-12-28] MEDS: METOPROLOL TARTRATE 25 MG TABLET PO SCH ×3 (02:03→17:45)
[2017-12-28] MEDS: ALBUTEROL/IPRATROPIUM 2.5MG/0.5MG, 3 ML INLINE SCH ×2 (02:42→06:23)
[2017-12-28] MEDS: AMPICILLIN/SULBACTAM 3 GM in SODIUM CHLORIDE 0.9% 100 ML IV SCH ×4 (04:38→22:34)
[2017-12-28 04:44] LABS: ANION GAP 7 mmol/L (5-15); CHLORIDE 113 mmol/L (98-107); CREATININE 1.35 mg/dL (0.7-1.3)
[2017-12-28 04:49] LABS: MEAN CORPUSCULAR HEMOGLOBIN 30.5 pg (27.5-34.5); MEAN CORPUSCULAR HGB CONC 33.3 g/dL (33.2-36.2); MEAN CORPUSCULAR VOLUME 91.6 fL (81-97); MEAN PLATELET VOLUME 7.6 fL (7.4-10.4); PLATELET COUNT 281 x10^3/uL (130-400); RED BLOOD COUNT 2.46 x10^6/uL (4.38-5.82); RED CELL DISTRIBUTION WIDTH 16.8 % (9.4-14.8)
[2017-12-28] MEDS: ERGOCALCIFEROL 50,000 UNIT CAPSULE PO SCH (05:37)
[2017-12-28] MEDS: FENTANYL PF 100 MCG/2ML IVPush PRN ×2 (05:37→20:02)
[2017-12-28 05:52] LABS: BASOPHILS # (AUTO) 0.06 x10^3/uL (0-0.1); BASOPHILS % (AUTO) 1 % (0-1); EOSINOPHILS # (AUTO) 0.36 x10^3/uL (0-0.4); EOSINOPHILS % (AUTO) 3 % (1-7); LYMPHOCYTES # (AUTO) 0.89 x10^3/uL (1-3.4); LYMPHOCYTES % (AUTO) 7 % (22-44); MD SCAN; MONOCYTES # (AUTO) 0.96 x10^3/uL (0.2-0.8); MONOCYTES % (AUTO) 7 % (2-9); NEUTROPHILS # (AUTO) 10.78 x10^3/uL (1.8-6.8); NEUTROPHILS % (AUTO) 83 % (42-75)
[2017-12-28] MEDS: TAMSULOSIN 0.4 MG CAP.ER.24H PO SCH (08:28)
[2017-12-28] MEDS: DOCUSATE 50 MG/5 ML, 10ML UDC PO SCH (08:28)
[2017-12-28] MEDS: PANTOPRAZOLE GRAN. PKT 40 MG PO SCH ×2 (08:29→20:02)
[2017-12-28] MEDS: POLYETHYLENE GLYCOL 17 GM PACKET PO SCH (08:29)
[2017-12-28] MEDS ORDERED: FUROSEMIDE 40 MG/4 ML IV ONE (09:00)
[2017-12-28] MEDS: FLUTICASONE/VILANTEROL 100-25MCG/INH INH SCH (09:00)
[2017-12-28] MEDS: ALBUTEROL/IPRATROPIUM 2.5MG/0.5MG, 3 ML NPPB SCH ×4 (09:30→23:06)
[2017-12-28] MEDS ORDERED: ALBUTEROL/IPRATROPIUM 2.5MG/0.5MG, 3 ML NPPB PRN (09:30)
[2017-12-28] MEDS: ENOXAPARIN 80 MG/0.8 ML SQ SCH (13:10)
[2017-12-28 20:42] VITALS: BP 142/82
[2017-12-29] MEDS: FENTANYL PF 100 MCG/2ML IVPush PRN (00:33)
[2017-12-29] MEDS: METOPROLOL TARTRATE 25 MG TABLET PO SCH ×3 (00:33→17:33)
[2017-12-29] MEDS: ENOXAPARIN 80 MG/0.8 ML SQ SCH ×2 (00:33→12:42)
[2017-12-29] MEDS: ALBUTEROL/IPRATROPIUM 2.5MG/0.5MG, 3 ML NPPB SCH ×6 (03:16→23:59)
[2017-12-29] MEDS: AMPICILLIN/SULBACTAM 3 GM in SODIUM CHLORIDE 0.9% 100 ML IV SCH (05:05)
[2017-12-29 05:16] LABS: ANION GAP 7 mmol/L (5-15); CALCIUM 8.3 mg/dL (8.5-10.1); CHLORIDE 110 mmol/L (98-107)
[2017-12-29 05:18] LABS: CREATININE 1.35 mg/dL (0.7-1.3); TRIGLYCERIDES 90 mg/dL (50-200)
[2017-12-29 05:55] LABS: MEAN CORPUSCULAR HEMOGLOBIN 32.1 pg (27.5-34.5); MEAN CORPUSCULAR HGB CONC 34.8 g/dL (33.2-36.2); MEAN CORPUSCULAR VOLUME 92.3 fL (81-97); MEAN PLATELET VOLUME 8.2 fL (7.4-10.4); PLATELET COUNT 261 x10^3/uL (130-400); RED BLOOD COUNT 2.38 x10^6/uL (4.38-5.82); RED CELL DISTRIBUTION WIDTH 16.2 % (9.4-14.8)
[2017-12-29 06:12] LABS: BASOPHILS # (AUTO) 0.06 x10^3/uL (0-0.1); BASOPHILS % (AUTO) 1 % (0-1); EOSINOPHILS # (AUTO) 0.31 x10^3/uL (0-0.4); EOSINOPHILS % (AUTO) 3 % (1-7); LYMPHOCYTES # (AUTO) 0.84 x10^3/uL (1-3.4); LYMPHOCYTES % (AUTO) 8 % (22-44); MD SCAN; MONOCYTES # (AUTO) 0.89 x10^3/uL (0.2-0.8); MONOCYTES % (AUTO) 8 % (2-9); NEUTROPHILS % (AUTO) 81 % (42-75)
[2017-12-29] MEDS: TAMSULOSIN 0.4 MG CAP.ER.24H PO SCH (10:01)
[2017-12-29] MEDS: POLYETHYLENE GLYCOL 17 GM PACKET PO SCH (10:02)
[2017-12-29] MEDS: PANTOPRAZOLE GRAN. PKT 40 MG PO SCH ×2 (10:02→20:35)
[2017-12-29] MEDS: DOCUSATE 50 MG/5 ML, 10ML UDC PO SCH (10:02)
[2017-12-29] MEDS: FLUTICASONE/VILANTEROL 100-25MCG/INH INH SCH (12:42)
[2017-12-30] MEDS: METOPROLOL TARTRATE 25 MG TABLET PO SCH ×3 (01:14→18:00)
[2017-12-30] MEDS: ENOXAPARIN 80 MG/0.8 ML SQ SCH (01:14)
[2017-12-30] MEDS: ALBUTEROL/IPRATROPIUM 2.5MG/0.5MG, 3 ML NPPB SCH ×3 (03:00→10:49)
[2017-12-30 04:27] VITALS: BP 130/72
[2017-12-30 04:36] LABS: ALANINE AMINOTRANSFERASE 30 U/L (12-78); ALBUMIN 1.8 g/dL (3.4-5.0); ANION GAP 8 mmol/L (5-15); CALCIUM 8.6 mg/dL (8.5-10.1); CHLORIDE 111 mmol/L (98-107); CREATININE 1.35 mg/dL (0.7-1.3)
[2017-12-30 04:39] LABS: ALKALINE PHOSPHATASE 53 U/L (45-117); BILIRUBIN,TOTAL 0.5 mg/dL (0.2-1.0); TOTAL PROTEIN 5.5 g/dL (6.4-8.2)
[2017-12-30] MEDS: TAMSULOSIN 0.4 MG CAP.ER.24H PO SCH (09:31)
[2017-12-30] MEDS: DOCUSATE 50 MG/5 ML, 10ML UDC PO SCH (09:31)
[2017-12-30] MEDS: FLUTICASONE/VILANTEROL 100-25MCG/INH INH SCH (09:31)
[2017-12-30] MEDS: PANTOPRAZOLE GRAN. PKT 40 MG PO SCH ×2 (09:32→21:00)
[2017-12-30] MEDS: POLYETHYLENE GLYCOL 17 GM PACKET PO SCH (09:32)
[2017-12-30] MEDS ORDERED: ATROPINE OPHTH SOLN 1%, 5ML BC PRN (12:00)
[2017-12-30] MEDS ORDERED: PROCHLORPERAZINE 5 MG/ML, 2ML IVPush PRN (12:00)
[2017-12-30] MEDS: LORazepam 2 MG/ML, 1ML IVPush PRN (15:53)
[2017-12-30] MEDS: MORPHINE SULFATE 4 MG/ML, 1ML IVPush PRN (21:29)
[2017-12-31] MEDS: MORPHINE SULFATE 4 MG/ML, 1ML IVPush PRN ×7 (00:32→22:25)
[2017-12-31] MEDS: METOPROLOL TARTRATE 25 MG TABLET PO SCH ×3 (02:00→17:20)
[2017-12-31] MEDS: LORazepam 2 MG/ML, 1ML IVPush PRN ×2 (04:56→05:59)
[2017-12-31] MEDS ORDERED: ATRO2DRO3 BC (10:09)
[2017-12-31] MEDS ORDERED: MORP4VIA IVPush (10:09)
[2017-12-31] MEDS ORDERED: SCOP1PAT11 TD (10:09)
[2017-12-31] MEDS ORDERED: LORA2VIA4 IVPush (10:09)
[2017-12-31] MEDS ORDERED: ONDA4VIA4 IVPush (10:09)
[2017-12-31] MEDS ORDERED: POLY17PO5 PO (10:09)
[2017-12-31] MEDS: DOCUSATE 50 MG/5 ML, 10ML UDC PO SCH (10:20)
[2017-12-31] MEDS: SCOPOLAMINE PATCH, 1.5MG PATCH.TD72 TD SCH (10:20)
[2017-12-31] MEDS: PANTOPRAZOLE GRAN. PKT 40 MG PO SCH ×2 (10:20→21:00)
[2017-12-31] MEDS: POLYETHYLENE GLYCOL 17 GM PACKET PO SCH (10:20)
[2017-12-31] MEDS: TAMSULOSIN 0.4 MG CAP.ER.24H PO SCH (10:20)
[2017-12-31] MEDS: FLUTICASONE/VILANTEROL 100-25MCG/INH INH SCH (11:52)
[2017-12-31 20:00] VITALS: BP 118/72
[2018-01-01] MEDS: METOPROLOL TARTRATE 25 MG TABLET PO SCH ×2 (01:57→07:36)
[2018-01-01] MEDS: MORPHINE SULFATE 4 MG/ML, 1ML IVPush PRN ×3 (03:21→13:24)
[2018-01-01] MEDS: SCOPOLAMINE PATCH, 1.5MG PATCH.TD72 TD SCH (03:28)
[2018-01-01] MEDS: FLUTICASONE/VILANTEROL 100-25MCG/INH INH SCH (07:32)
[2018-01-01] MEDS: DOCUSATE 50 MG/5 ML, 10ML UDC PO SCH (07:32)
[2018-01-01] MEDS: TAMSULOSIN 0.4 MG CAP.ER.24H PO SCH (07:32)
[2018-01-01] MEDS: PANTOPRAZOLE GRAN. PKT 40 MG PO SCH (07:32)
[2018-01-01] MEDS: POLYETHYLENE GLYCOL 17 GM PACKET PO SCH (07:32)
== END 2018-01-01 13:30 | DRG 207 ==
LOC: SUATTDRO 22:59 → ED 23:03 → EDIP 23:36 → CCU 23:41 → 3NE 12-11 12:22 → 5SO 12-15 12:00 → CCU 12-20 08:17 → 3NW 12-30 15:16
PROVIDERS: ADMIT Hospitalist; ATTEND Hospitalist
PROC: 5A1955Z Respiratory Ventilation, Greater than 96 Consecutive Hours (ICD-10-PCS; principal; 2017-12-20)
PROC: 0BH18EZ Insertion of Endotracheal Airway into Trachea, Via Natural or Artificial Opening Endoscopic (ICD-10-PCS; 2017-12-20)
PROC: 02HV33Z Insertion of Infusion Device into Superior Vena Cava, Percutaneous Approach (ICD-10-PCS; 2017-12-20)
DX: J96.21 Acute and chronic respiratory failure with hypoxia (principal); E43 Unspecified severe protein-calorie malnutrition; J69.0 Pneumonitis due to inhalation of food and vomit; N17.0 Acute kidney failure with tubular necrosis; G92 Toxic encephalopathy; F10.239 Alcohol dependence with withdrawal, unspecified; E87.1 Hypo-osmolality and hyponatremia; K56.49 Other impaction of intestine; Z99.11 Dependence on respirator [ventilator] status; E87.0 Hyperosmolality and hypernatremia; J44.1 Chronic obstructive pulmonary disease with (acute) exacerbation; N25.81 Secondary hyperparathyroidism of renal origin; N39.0 Urinary tract infection, site not specified; D69.59 Other secondary thrombocytopenia; E55.9 Vitamin D deficiency, unspecified; F41.9 Anxiety disorder, unspecified; A49.02 Methicillin resistant Staphylococcus aureus infection, unspecified site; I10 Essential (primary) hypertension; I48.0 Paroxysmal atrial fibrillation; R13.10 Dysphagia, unspecified; R32 Unspecified urinary incontinence; T38.0X5A Adverse effect of glucocorticoids and synthetic analogues, initial encounter; W18.30XA Fall on same level, unspecified, initial encounter; Z51.5 Encounter for palliative care; Z66 Do not resuscitate; Z87.891 Personal history of nicotine dependence; Y92.009 Unspecified place in unspecified non-institutional (private) residence as the place of occurrence of the external cause; Z99.81 Dependence on supplemental oxygen; Z68.28 Body mass index [BMI] 28.0-28.9, adult
CPT/HCPCS: 36415; 36600; 74022; 74230; 99285; J7042; J7613; J7620; J7626; J7644; S0028; 0399T; 31624; 70450; 71045; 76770; 80048; 80053; 80170; 81001; 82140; 82306; 82607; 82803; 83540; 83550; 83735; 83880; 83930; 83935; 83970; 84100; 84295; 84300; 84443; 84478; 85025; 85520; 85610; 85730; 87040; 87070; 87077; 87081; 87086; 87186; 87205; 93005; 93306; 94002; 94003; 94640; J0295; J0696; J1644; J1650; J1940; J2250; J2543; J2704; J3010; J3360; J3411; J7070; C9113; J1580; J1630; J2060; J2920; J2930; J3475; J7030; J7040; J7050